=== PATIENT | female | born 1950 | race Caucasian/White ===

== ENCOUNTER 2018-02-26 11:55 | Emergency (ER) | payer SELFPAY ==
[2018-02-26 12:11] VITALS: BP 128/75
--- NOTE | 2018-02-26 12:34 | EDPHY ---
H & P Time Seen by Provider: 02/26/18 12:15 HPI/ROS: CHIEF COMPLAINT: Neck pain History by patient HISTORY OF PRESENT ILLNESS: 67-year-old woman presents complaining of left greater than right-sided neck pain for 1 week with some low-grade fevers and malaise. Patient states that 6 days ago she woke up in the morning with left- sided neck pain and stiffness and had her usual weekly massage which she thought would work it out but it did not seem to go away. The next day she noticed it on the other side. She takes 600 mg of ibuprofen every 18 hr and this improves and relieved the pain. For 5 days ago she felt warm with some general malaise so she took her temperature and has been running between 99 and 100.8. She denies any headache or photophobia. She denies any nausea or vomiting or diarrhea. She denies any runny nose, cough and felt like maybe she had a little bit of sore throat that she related to her posterior neck pain but this has resolved. She denies any rash. She has had a poor appetite but is taking fluids without difficulty. She denies any trauma or new activity that might have initiated the neck pain. She has had over the past month or so some urinary urgency and frequency but no dysuria or low back pain. Patient came in today because she called her primary care provider who was concerned with her symptoms that she might have meningitis and recommended she be evaluated in the emergency department. REVIEW OF SYSTEMS: As in HPI, and all other systems reviewed and are negative Smoking Status: Current every day smoker Physical Exam: General Appearance: Alert, pleasant, nontoxic-appearing Head: normocephalic, atraumatic Eyes: Pupils equal and round, reactive to light, no pallor or injection. Mouth: Mucous membranes moist. Oropharynx clear Neck: No bony tenderness, positive left trapezius muscle tenderness, tightness and spasm, decreased range of motion secondary to pain Respiratory: Normal, effort, lungs are clear to auscultation. No wheezes, rales or rhonchi. Cardiovascular: Regular rate and rhythm. S1, S2, no murmurs, gallops or rubs appreciated Gastrointestinal: Abdomen is soft and nontender, no masses, bowel sounds normal. Back: No CVA tenderness, no bony tenderness Neurological: Awake, alert and oriented x 3, cranial nerves 2-12 intact, no pronator drift, normal gait, motor is 5/5 and equal bilaterally lower extremities, distal sensation intact Skin: Warm and dry, no rashes. Musculoskeletal: No deformities or tenderness. Extremities: full range of motion, no edema, DP2+ bilat Psychiatric: Patient has normal affect, there is no agitation. Constitutional: Initial Vital Signs Temperature (C) 37.4 C 02/26/18 12:07 Heart Rate 84 02/26/18 12:07 Respiratory Rate 18 02/26/18 12:07 Blood Pressure 128/75 H 02/26/18 12:07 O2 Sat (%) 92 02/26/18 12:07 O2 Delivery Mode Room Air Allergies/Adverse Reactions: Penicillins Allergy (Intermediate, Verified 02/26/18 12:06) Home Medications: Medication Instructions Recorded DULoxetine [Cymbalta] mg PO HS 04/30/11 Levothyroxine [Synthroid] mcg PO DAILY 04/30/11 lamOTRIGine [LamICTAL] 25 mg PO 04/30/11 Abilify 02/26/18 MDM/Departure - [facility] ED Course/Re-evaluation: 67-year-old woman with some neck pain and low-grade fever referred in by her primary care physician because of concern of meningitis. Here the patient appears clinically nontoxic and there is no evidence of meningismus. Given that her symptoms have been going on for a week and she is well-appearing today I doubt bacterial meningitis. She does have palpable trapezius muscle spasm and tenderness which I suspect is the cause of her neck pain. Given she has had some urinary symptoms with a low-grade fever we will go ahead and check a UA to evaluate for urinary tract infection. UA showed no evidence of infection. This point I will treat the patient for musculoskeletal neck pain. I am recommending continuing ibuprofen but to take it 3 or 4 times a day as needed. We discussed return precautions including but not limited to inability to take fluids, development of fever greater than 101, rash, headache or other concerns about worsening. Patient and her roommate understand agreeable to this plan. - Depart Disposition: Home, Routine, Self-Care Clinical Impression: Neck pain, bilateral Fever Qualifiers: Fever type: unspecified Qualified Code(s): R50.9 - Fever, unspecified Instructions: Acute Neck Pain (ED) Additional Instructions: You were seen by Dr. Precious Vides today. There is no evidence of meningitis or urinary tract infection today. I recommend continuing ibuprofen as needed for your neck pain. You may take ibuprofen 600 mg 3 to 4 times a day. I recommend you try massage again. Follow-up with her primary care physician at [facility] if symptoms persist. Return for any worsening or new concerns, including but not limited to fever greater than 101 F, vomiting, severe headache, or new rash, inability to take fluids or other worsening or concerns. Referrals: NONE *PRIMARY CARE P,. [Primary Care Provider] - As per Instructions
== END 2018-02-26 12:50 | disposition home or self-care (01) ==
LOC: CED 11:55
DX: M54.2 Cervicalgia (principal); R50.9 Fever, unspecified; F17.200 Nicotine dependence, unspecified, uncomplicated